=== PATIENT | male | born 1950 ===

== ENCOUNTER 2018-01-03 10:43 | Emergency (ER) | payer OTHER ==
[~2018-01-03] VITALS: Ht 160 cm; Wt 59.0 kg
[2018-01-03] MEDS ORDERED: ZESTRIL5 MG (10:56)
[2018-01-03] MEDS ORDERED: MUCINEX1200 MG PO (12:40)
== END 2018-01-03 16:48 | disposition home or self-care (01) ==
LOC: ER 10:43
DX: J30.89 Other allergic rhinitis (principal)

== ENCOUNTER 2019-04-13 07:43 | Emergency (ER) | payer OTHER ==
[~2019-04-13] VITALS: Ht 160 cm; Wt 61.2 kg
[~2019-04-13 07:43] MED LIST: MUCINEX1200 MG PO; ZESTRIL5 MG
== END 2019-04-13 12:52 | disposition home or self-care (01) ==
LOC: ER 07:43
DX: B34.9 Viral infection, unspecified (principal); R19.7 Diarrhea, unspecified

== ENCOUNTER 2019-06-11 11:14 | Emergency (ER) | payer OTHER ==
[~2019-06-11] VITALS: Ht 160 cm; Wt 102.1 kg
== END 2019-06-11 14:04 | disposition home or self-care (01) ==
LOC: ER 11:14
DX: J06.9 Acute upper respiratory infection, unspecified (principal); I10 Essential (primary) hypertension

== ENCOUNTER 2020-09-26 10:12 | Emergency (ER) | payer OTHER ==
[~2020-09-26] VITALS: Ht 160 cm; Wt 61.2 kg
[2020-09-26] MEDS ORDERED: KETO10TA2 PO (14:45)
== END 2020-09-26 14:53 | disposition home or self-care (01) ==
LOC: ER 10:12
DX: M25.532 Pain in left wrist (principal)

== ENCOUNTER 2021-05-18 12:26 | Emergency (ER) | payer OTHER ==
[~2021-05-18] VITALS: Ht 160 cm; Wt 60.8 kg
[~2021-05-18 12:26] MED LIST changes: +KETO10TA2 PO
== END 2021-05-18 15:56 | disposition home or self-care (01) ==
LOC: ER 12:26
DX: R07.89 Other chest pain (principal)

== ENCOUNTER 2022-08-05 20:50 | Emergency (ER) | payer OTHER ==
[~2022-08-05] VITALS: Ht 162.6 cm; Wt 54.4 kg
== END 2022-08-05 23:45 | disposition home or self-care (01) ==
LOC: ER 20:50
DX: R11.10 Vomiting, unspecified (principal); I10 Essential (primary) hypertension

== ENCOUNTER 2022-10-28 23:46 | Emergency (ER) | payer OTHER ==
[~2022-10-28] VITALS: Ht 167.6 cm; Wt 63.5 kg
[2022-10-29] MEDS ORDERED: AMLODIPINE-OLM1 EACH (00:01)
== END 2022-10-29 02:28 | disposition home or self-care (01) ==
LOC: ER 23:46
DX: J06.9 Acute upper respiratory infection, unspecified (principal)